=== PATIENT | female | born 1950 | race Caucasian/White ===

== ENCOUNTER → 2018-02-19 14:59 | Outpatient (CLI) | payer MEDICARE, OTHER, SELFPAY ==
--- NOTE | 2018-02-19 15:04 | MR_ITS ---
MR knee RT wo con HISTORY: Right knee pain with recent injury with pain medially with limited range of motion ITS.REASON: PAIN IN RIGHT KNEE ORDERING PHYSICIAN: Rossy Son PATIENT AGE: 67 years Comparison: None TECHNIQUE: Standard multiplanar multiecho sequences are performed without contrast. FINDINGS: The cruciate ligaments are intact. The collateral ligaments, patellar tendon, and quadriceps tendon are intact. No definite meniscal tear. There is increased signal intensity involving the posterior horn of the medial meniscus. This however does not extend to an articular surface and does not meet strict MRI criteria for a meniscal tear. There is thinning of the patellar cartilage with mild lateral subluxation of the patella. Small knee joint effusion is present mainly in the retropatellar region. Subcutaneous edema is present about the knee. There is a nondisplaced fracture involving the proximal tibia. The fracture has an inverted Y shape with longitudinal component extending into the proximal tibia at the interspinous region with one Pyle of the fracture extending medially and one Pyle extending laterally. There is a moderate amount of the proximal tibia. IMPRESSION: 1. Comminuted nondisplaced fracture of the proximal tibia with intra-articular component extending into the interspinous region with a moderate amount of edema. 2. No evidence of internal derangement. No meniscal or ligamentous tear evident. 3. Knee joint effusion
== END ==
PROVIDERS: PCP Nurse Practitioner Family; Visit Provider Nurse Practitioner Family
DX: M25.561 Pain in right knee (principal)
CPT/HCPCS: 73721

== ENCOUNTER 2018-07-06 13:00 | Outpatient (RCR) | payer MEDICARE, OTHER, SELFPAY | END 2018-07-06 14:30 | disposition home or self-care (01) | LOC: PT 13:00 | PROVIDERS: Visit Provider Orthopaedic Surgery Adult Reconstructive Orthopaedic Surgery | DX: S82.144A Nondisplaced bicondylar fracture of right tibia, initial encounter for closed fracture (principal) | CPT/HCPCS: 97014; 97110; 97112; 97163; 97164; G0283 ==

== ENCOUNTER → 2018-09-03 10:06 | Outpatient (CLI) | payer OTHER, SELFPAY ==
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
== END ==
PROVIDERS: PCP Nurse Practitioner Family; Visit Provider Nurse Practitioner Family
DX: M54.2 Cervicalgia (principal); M54.5 Low back pain
CPT/HCPCS: 72040; 72100

== ENCOUNTER 2022-12-29 16:09 | Inpatient (IN) | payer MEDICARE, OTHER, SELFPAY ==
[2022-12-29] VITALS (7 sets, daily range): BP systolic 107–126; BP diastolic 63–75; PULSE 114–124; RESP 18–22; TEMP 36.7–37.1; O2SAT 90–94
--- NOTE | 2022-12-29 16:34 | XR_ITS ---
PROCEDURE INFORMATION: Exam: XR Chest Exam date and time: 12/29/2022 4:36 PM Age: 72 years old Clinical indication: Dyspnea TECHNIQUE: Imaging protocol: Radiologic exam of the chest. Views: 1 view. COMPARISON: CR CXR CHEST(2 VIEWS-NOT PORTABLE) 08/18/2016 5:07 PM FINDINGS: Limitations: Study is technically limited due to patient positioning, rotation and poor inspiratory effort. Lungs: Lung volumes are decreased. There is mild relative elevation of the hemidiaphragm, unchanged. There is hazy ground-glass opacification with accentuated bronchovascular markings throughout the left mid-lower lung zone difficult to evaluate due to overlying breast attenuation artifact and patient rotation. Findings may be secondary to layering of a pleural effusion or underlying pulmonary vascular congestion and could be further assessed on CT exam.. There is an indistinct opacifications projecting over the right hilum also difficult to assess due to patient rotation and could be better evaluated on CT. Pleural spaces: See Lungs finding. Heart/Mediastinum: Unremarkable. No cardiomegaly. Bones/joints: Unremarkable for age. IMPRESSION: Limited assessment of the left lung and right hilum as discussed above.
--- NOTE | 2022-12-29 16:37 | CT_ITS ---
PROCEDURE INFORMATION: Exam: CT Abdomen And Pelvis With Contrast Exam date and time: 12/29/2022 5:13 PM Age: 72 years old Clinical indication: Abdominal pain; Generalized; Additional info: Fever diffuse abd pain TECHNIQUE: Imaging protocol: Computed tomography of the abdomen and pelvis with contrast. Radiation optimization: All CT scans at this facility use at least one of these dose optimization techniques: automated exposure control; mA and/or kV adjustment per patient size (includes targeted exams where dose is matched to clinical indication); or iterative reconstruction. Contrast material: ISOVUE; Contrast volume: 75 ml; Contrast route: IV; REPORTING DATA: Count of CT and Cardiac NM exams in prior 12 months: This patient has received 0 known CTs and 0 known cardiac nuclear medicine studies in the 12 months prior to the current study. COMPARISON: CR XR CHEST PORTABLE 12/29/2022 4:36 PM FINDINGS: Lungs: There is scattered bronchiectasis and coarsened peribronchial interstitial opacities lower lung zones more pronounced on the left likely secondary to chronic airway changes and linear atelectasis. Pleural spaces: There is a moderate size left pleural effusion partially visualized. Liver: Liver has a shrunken cirrhotic contour. 5.7 x 4.1 cm circumscribed hypodense liver mass inferior-posterior aspect right lobe, indeterminate. Large amount of ascites throughout the abdomen and pelvis may in part be secondary to patient's liver disease. Gallbladder and bile ducts: Gallbladder has been removed. Bile ducts are not appreciably dilated. Pancreas: Unremarkable. Main pancreatic duct is not significantly dilated. Spleen: There are scattered calcified granulomas within the spleen, longstanding, otherwise spleen is unremarkable. Adrenal glands: Normal. No mass. Kidneys and ureters: Kidneys are unremarkable. No calculi or hydronephrosis detected. Stomach and bowel: There are multiple diverticuli throughout the distal portion of the large bowel without evidence of diverticulitis. Appendix: Appendix cannot be identified with confidence the. No findings suggestive of acute appendicitis. Intraperitoneal space: Accentuated portosystemic collaterals in the upper abdomen consistent with portal hypertension. Vasculature: Unremarkable. No abdominal aortic aneurysm. Lymph nodes: Unremarkable. No enlarged lymph nodes. Urinary bladder: Urinary bladder is unremarkable. Reproductive: Uterus is unremarkable. No adnexal masses are enlargement detected. Bones/joints: No acute bony abnormalities detected. Soft tissues: Extensive anasarca in the soft tissues likely due to 3rd spacing. IMPRESSION: 1. Cirrhosis with evidence of portal hypertension. 2. Large amount of ascites, left pleural effusion and extensive anasarca in the soft tissues that may be due to combination of patient's liver disease and other causes of 3rd spacing. 3. 5.7 cm circumscribed liver mass right lobe, indeterminate for which continued follow-up advised. 4. Colonic diverticulosis. No evidence of acute diverticulitis. 5. Additional nonemergent findings as above.
[2022-12-29 16:51] LABS: Basophils # 0.1 K/mm3 (0-0.2); Basophils % 0.5 % (0.1-2.0); Eosinophils # 0.5 K/mm3 (0.0-0.4); Eosinophils % 4.5 % (0.1-12.0); Hematocrit 46.3 % (37.0-47.0); Hemoglobin 13.9 g/dL (12.2-16.2); Lymphocytes # 2.1 K/mm3 (0.7-4.5); Lymphocytes % 20.7 % (10-50); Mean Corpuscular Hemoglobin 30.7 pg (27.0-31.2); Mean Corpuscular Volume 102.1 fl (81-99); Mean Platelet Volume 8.2 fl (7.4-10.4); Monocytes # 1.3 K/mm3 (0.1-1.0); Neutrophils # 6.1 K/mm3 (1.8-7.8); Neutrophils % 61.3 % (37.0-80.0); Platelet Count 214 K/mm3 (142-424); Red Blood Count 4.54 M/mm3 (4.20-5.40); Red Cell Distribution Width 16.5 % (11.5-17.5); White Blood Count 9.9 K/mm3 (4.8-10.8)
--- NOTE | 2022-12-29 16:55 | PC.NURSE ---
MD to bedside to perform diagnostic paracentesis.
[2022-12-29 16:56] LABS: Alanine Aminotransferase 21 U/L (12-78); Albumin Level 2.5 g/dl (3.5-5.0); Albumin/Globulin Ratio 0.7 (1.1-1.8); Alkaline Phosphatase 207 U/L (38-126); Anion Gap 7.6 mEq/L (5-15); Aspartate Amino Transferase 63 U/L (14-36); Bilirubin,Total 1.7 mg/dl (0.2-1.3); Blood Urea Nitrogen 36 mg/dl (7-17); Calcium 7.5 mg/dl (8.4-10.2); Carbon Dioxide 28 mmol/L (22.0-30.0); Chloride 106 mmol/L (98-107); Creatinine Clearance Estimated 2 mL/min (50-200); Estimated Glomerular Filt Rate 55 ml/min (>60); GFR (African American) 66 ML/MIN (>60); Globulin 3.7 g/dL (1.3-3.2); Glucose 181 mg/dl (74-100); Lipase 106 U/L (23-300); Potassium 4.6 mmoL/L (3.5-5.1); Sodium 137 mmol/L (136-145); Total Protein,Serum 6.2 g/dl (6.3-8.2)
--- NOTE | 2022-12-29 16:56 | HMH.EDGENADL ---
Discharge Plan Disposition Patient Disposition: Admitted Clinical Impressions Clinical Impression: SBP (spontaneous bacterial peritonitis), Decompensation of cirrhosis of liver, Tachycardia, Edema of both lower legs, Liver mass Discharge ED Provider: Antonette Ramirez General Adult HPI General Chief complaint: Abdominal Pain Stated complaint: abdominal pain Time Seen by Provider: 12/29/22 16:21 Mode of Arrival: EMS Source of Information: Patient and EMS Limitations: No Limitations Description of Symptoms (Recalled from ER Triage Doc. by RN): pt presents to ED c/o abdominal pain and weeping from her abdomen and lower extremities. pt resides at [facility]. per report pt was recently admitted to [facility] for cellulitis and cirrhosis. History of Present Illness HPI narrative: Patient is a 72-year-old female here with fever abdominal pain and lethargy. She states that she has a history of nonalcoholic fatty liver disease and decompensated cirrhosis. She has been having diagnostic and therapeutic paracenteses for the last 6 months. She states her mental status is at her baseline she denies melena. She denies any respiratory or urinary symptoms. She denies rashes. She states she has been in and out of for similar treatments in the past she also has left lower extremity weakness which has been chronic and an ulcer on the dorsal aspect of her left lower extremity that she has been having treated with Unna boots. She states she is bedbound and has been able to walk for the last 6 months. She is not on hospice and no one has discussed this with her. She states that she wants to be full code. Related Data Home Medications Medication Instructions Recorded Confirmed alendronate 70 mg tablet 70 mg PO WEEKLY bones 12/29/22 12/29/22 cholecalciferol (vitamin D3) 25 25 mcg PO DAILY Supplement 12/29/22 12/29/22 mcg (1,000 unit) capsule empagliflozin 10 mg tablet 10 mg PO DAILY dm 12/29/22 12/29/22 (Jardiance) famotidine 20 mg tablet 20 mg PO DAILY gerd 12/29/22 12/29/22 furosemide 20 mg tablet 20 mg PO DAILY Fluid 12/29/22 12/29/22 lactulose 10 gram/15 mL oral 10 g PO BID PRN Constipation 12/29/22 12/29/22 solution pantoprazole 40 mg tablet,delayed 40 mg PO DAILY gerd 12/29/22 12/29/22 release pravastatin 40 mg tablet 40 mg PO HS Cholesterol 12/29/22 12/29/22 rifaximin 550 mg tablet 550 mg PO BID liver 12/29/22 12/29/22 zinc sulfate 220 mg capsule 220 mg PO ONCE Supplement 12/29/22 12/29/22 Allergies Allergy/AdvReac Type Severity Reaction Status Date / Time No Known Allergies Allergy Unverified 05/20/17 14:16 [facility] Disclaimer: The information contained in this section may have been updated after the patient was seen, as this information can be updated by other users. Medical History (Updated 12/29/22 @ 22:20 by Antonette Ramirez MD) Abdominal ascites Acute respiratory failure RAFAEL (acute kidney injury) Cirrhosis of liver Diabetes type 2, controlled Esophageal varices GERD (gastroesophageal reflux disease) Hyperlipemia Hypertension Insomnia BOUDREAUX (nonalcoholic steatohepatitis) Neoplasm of liver Osteoarthritis Portal vein thrombosis Social History (Updated 12/29/22 @ 16:25 by Karma Ruiz RN) Smoking Status: Never smoker alcohol intake: never current occupational status: other Travel in the last 8 weeks: None ROS Obtained: Yes All systems reviewed & no additional complaints except as documented Physical Exam General General appearance: alert Respiratory Respiratory exam: Present normal lung sounds bilaterally and other (Oxygen saturations 93% on room air); Absent respiratory distress Cardiovascular Cardiovascular exam: Present tachycardia Abdominal Exam Abdominal exam: Present distention and tenderness (Diffusely tender throughout no rebound or guarding) Neurological Exam Neurological exam: Present alert and oriented X3 Skin Skin exam: Present other (Diffuse vasquez
[2022-12-29 16:59] LABS: Activated Partial Thrombo Time 29.3 seconds (22.8-30.6); INR 1.26 (0.9-1.1); Prothrombin Time 13.4 seconds (10.1-12.5)
--- NOTE | 2022-12-29 17:00 | PC.NURSE ---
specimens walked to lab.
--- NOTE | 2022-12-29 17:05 | PC.NURSE ---
Addendum entered by Kerri Simmons RN 12/29/22 17:49: spoke with Lisa in lab states she did find the order for triglycerides and was going to place order for that, updated JOSE RAFAEL ZAPATA Original Note: contacted lab per JOSE RAFAEL Ramirez requesting a triglyceride level on ascities fluid drawn from pt. Spoke with Lily, states she thinks that it is a send out lab, states she will check and call us back. Reported to Lisa we could not find the order in the computer, states she will check on that also.
[2022-12-29 17:07] LABS: Appearance,Body Fld. Cloudy; Source, Body Fld. Peritoneal Fluid; Volume,Body Fld. 40 mL
--- NOTE | 2022-12-29 17:15 | PC.NURSE ---
pt to radiology
[2022-12-29 17:19] LABS: RBC,Body Fluid < 10 cells/uL (< 10 X 10^3); TNC,Body Fluid 86 cells/uL (< 1000)
--- NOTE | 2022-12-29 17:20 | PC.NURSE ---
pt returned from radiology.
--- NOTE | 2022-12-29 17:48 | PC.NURSE ---
ER MD Ramirez speaking with Dr Osman, hospitalist
[2022-12-29 18:01] LABS: Mononuclear WBCs,Body Fluid 44 %; Polynuclear WBC,Body Fluid 16 %
--- NOTE | 2022-12-29 18:03 | PC.NURSE ---
contacted cook house supervisor for admission, states she is waiting on a call back from Dr. Osman he is consulting with Dr. Pelaez who possibly see pt at [facility].
[2022-12-29 18:32] LABS: Hemoglobin A1C 5.4 % (4.0-6.0)
--- NOTE | 2022-12-29 18:45 | PC.NURSE ---
report called at this time.
[2022-12-29 19:46] LABS: Microscopic, Urine URINE MICROSCOPIC (MICROSCOPIC)
[2022-12-29 19:48] LABS: Appearance,Urine CLEAR (Clear); Bilirubin,Urine Negative (Negative); Blood, Urine TRACE-I (Negative); Color,Urine YELLOW (Yellow); Glucose,Urine (UA) 2+ (Negative); Ketones,Urine Negative (Negative); Leukocyte Esterase,Urine TRACE (Negative); Nitrate,Urine Negative (Negative); PH,Urine 5.5 (5.0-8.5); Protein,Urine Negative (Negative); Urobilinogen,Urine 0.2 EU/dl (0.2)
[2022-12-29 20:11] LABS: RBC,Urine Occasional #/hpf (0-3); Yeast,Urine 3+ /lpf
[2022-12-29 20:12] LABS: Bacteria,Urine Trace /lpf
[2022-12-29 20:57] LABS: POC Glucose,Bedside 132 (70-110)
[2022-12-30] VITALS (8 sets, daily range): BP systolic 117–154; BP diastolic 65–93; PULSE 106–118; RESP 17–18; TEMP 36.3–36.9; O2SAT 91–96; BMI 36.3
--- NOTE | 2022-12-30 03:20 | PC.NURSE ---
PATIENT C/O PRESSURE PAIN IN ABDOMEN 12/09. DR BIGGS NOTIFIED AND ORDERS RECEIVED FOR MORPHINE AND ZOFRAN.
--- NOTE | 2022-12-30 04:33 | PC.NURSE ---
VERY LITTLE RESULTS FROM BUMEX 1 MG IVP. 3 PLUS PITTING EDEMA BLEs. OPEN AREA ON LEFT FOOT WHERE LARGE BLISTER RUPTURED. ABDOMEN FIRM, DISTENDED (ASCITES), ACTIVE BOWEL SOUNDS. AT 0338 RECEIVED IVP MORPHINE 2 MG FOR ABD DISCOMFORT/PRESSURE 6-12/09.
[2022-12-30 05:37] LABS: POC Glucose,Bedside 112 (70-110)
[2022-12-30 06:47] LABS: Basophils % 0.4 % (0.1-2.0); Eosinophils # 0.4 K/mm3 (0.0-0.4); Eosinophils % 4.4 % (0.1-12.0); Hematocrit 44.8 % (37.0-47.0); Hemoglobin 13.7 g/dL (12.2-16.2); Lymphocytes % 20.2 % (10-50); Mean Corpuscular HGB Conc 30.5 g/dL (31.8-35.4); Mean Corpuscular Volume 101.9 fl (81-99); Mean Platelet Volume 8.1 fl (7.4-10.4); Monocytes # 1.2 K/mm3 (0.1-1.0); Monocytes % 12.6 % (1.7-9.3); Neutrophils # 6.1 K/mm3 (1.8-7.8); Neutrophils % 62.3 % (37.0-80.0); Platelet Count 191 K/mm3 (142-424); Red Cell Distribution Width 16.3 % (11.5-17.5); White Blood Count 9.8 K/mm3 (4.8-10.8)
[2022-12-30 06:54] LABS: Alanine Aminotransferase 19 U/L (12-78); Albumin Level 2.3 g/dl (3.5-5.0); Albumin/Globulin Ratio 0.7 (1.1-1.8); Alkaline Phosphatase 196 U/L (38-126); Anion Gap 8.3 mEq/L (5-15); Aspartate Amino Transferase 52 U/L (14-36); Bilirubin,Total 1.5 mg/dl (0.2-1.3); Blood Urea Nitrogen 37 mg/dl (7-17); Calcium 7.5 mg/dl (8.4-10.2); Carbon Dioxide 27 mmol/L (22.0-30.0); Chloride 106 mmol/L (98-107); Chol/HDL Ratio 8.8 (1-3.5); Cholesterol 150 mg/dl (140-200); Creatinine Clearance Estimated 65 mL/min (50-200); Estimated Glomerular Filt Rate 49 ml/min (>60); GFR (African American) 59 ML/MIN (>60); Globulin 3.5 g/dL (1.3-3.2); Glucose 122 mg/dl (74-100); HDL Cholesterol 17 mg/dl (40-60); Magnesium 1.9 mg/dl (1.6-2.3); Potassium 4.3 mmoL/L (3.5-5.1); Sodium 137 mmol/L (136-145); Total Protein,Serum 5.8 g/dl (6.3-8.2); Triglycerides 93 mg/dl (30-150); VLDL Cholesterol 19 mg/dL (0-40)
[2022-12-30 07:04] LABS: Direct LDL Cholesterol 100.74 mg/dL (100-129)
--- NOTE | 2022-12-30 07:43 | EXP.HP ---
History of Present Illness *Admission Date: 12/29/22 *Reason for visit:: Abdominal pain and swelling *History of present illness: Very unfortunate 72-year-old female with history of liver mass, decompensated liver cirrhosis and history of spontaneous bacterial peritonitis with end-stage liver disease. She has been seen at [facility] multiple times, biopsies of her liver mass have not been done but the consideration has been that she has primary hepatocellular carcinoma. She been transferred to several times for diuresis, treatment of decompensated cirrhosis and has been living at the [facility] because of her pedal edema, overall functional decline status and need for nursing care. Over the past weeks we have discussed with her several times end-of-life issues, she is up to this point declined hospice care and has decided to maintain a full CODE STATUS. However, she became ill yesterday and requested that she not be transferred to because she was very tired of long-term stays and work-ups and hospitals. As result after evaluating in the ER and drawing off some chylous ascitic fluid she was admitted here for further discussions of management going forward. [facility] Disclaimer: The information contained in this section may have been updated after the patient was seen, as this information can be updated by other users. Medical History (Updated 12/29/22 @ 22:20 by Antonette Ramirez MD) Abdominal ascites Acute respiratory failure RAFAEL (acute kidney injury) Cirrhosis of liver Diabetes type 2, controlled Esophageal varices GERD (gastroesophageal reflux disease) Hyperlipemia Hypertension Insomnia BODUREAUX (nonalcoholic steatohepatitis) Neoplasm of liver Osteoarthritis Portal vein thrombosis Social History (Updated 12/29/22 @ 22:20 by Antonette Ramirez MD) Smoking Status: Never smoker alcohol intake: never current occupational status: other Travel in the last 8 weeks: None Meds Home Medications and Allergies Home Medications Medication Instructions Recorded Confirmed Type alendronate 70 mg tablet 70 mg PO WEEKLY bones 12/29/22 12/29/22 History cholecalciferol (vitamin D3) 25 25 mcg PO DAILY Supplement 12/29/22 12/29/22 History mcg (1,000 unit) capsule empagliflozin 10 mg tablet 10 mg PO DAILY dm 12/29/22 12/29/22 History (Jardiance) famotidine 20 mg tablet 20 mg PO DAILY gerd 12/29/22 12/29/22 History furosemide 20 mg tablet 20 mg PO DAILY Fluid 12/29/22 12/29/22 History lactulose 10 gram/15 mL oral 10 g PO BID PRN Constipation 12/29/22 12/29/22 History solution pantoprazole 40 mg tablet,delayed 40 mg PO DAILY gerd 12/29/22 12/29/22 History release pravastatin 40 mg tablet 40 mg PO HS Cholesterol 12/29/22 12/29/22 History rifaximin 550 mg tablet 550 mg PO BID liver 12/29/22 12/29/22 History zinc sulfate 220 mg capsule 220 mg PO ONCE Supplement 12/29/22 12/29/22 History New Prescriptions to Start Prescriptions: Allergies Allergy/AdvReac Type Severity Reaction Status Date / Time No Known Allergies Allergy Unverified 05/20/17 14:16 Exam Data for Last 24 hours Vital signs and Labs for Last 24 Hours: Temp Pulse Resp BP Pulse Ox O2 Del Method 97.7 F 117 H 18 127/67 93 L Room Air 12/30/22 04:00 12/30/22 04:00 12/30/22 04:00 12/30/22 04:00 12/30/22 04:00 12/30/22 06:33 Laboratory Results - last 24 hr 12/29/22 16:19: WBC 9.9, RBC 4.54, Hgb 13.9, Hct 46.3, MCV 102.1 H, MCH 30.7, MCHC 30.0 L, RDW 16.5, Plt Count 214, MPV 8.2, Neut % (Auto) 61.3, Lymph % (Auto) 20.7, [place] % (Auto) 13.0 H, Eos % (Auto) 4.5, Baso % (Auto) 0.5, Neut # (Auto) 6.1, Lymph # (Auto) 2.1, [place] # (Auto) 1.3 H, Eos # (Auto) 0.5 H, Baso # (Auto) 0.1, PT 13.4 H, INR 1.26 H, APTT 29.3, Sodium 137, Potassium 4.6, Chloride 106, Carbon Dioxide 28, Anion Gap 7.6, BUN 36 H, Creatinine 1.00, Estimated Creat Clear 2, Estimated GFR 55 L, Est GFR ( Amer) 66, Glucose 181 H, Hemog
--- NOTE | 2022-12-30 10:39 | CARE MANAGER ---
During rounds this am, talked to patient regarding Hospice services at [facility]. Patient was ok with services thus referral was made. Called [facility] and spoke with Scarlet Altman, patient records and demographics faxed. They will come to [facility] to eval this patient.
[2022-12-30 11:01] LABS: POC Glucose,Bedside 145 (70-110)
--- NOTE | 2022-12-30 11:31 | P.CONPHA_ITS ---
Pharmacy Intervention Comments: Patient's home medications were verified by using a med list from long-term. -King Cerda, PharmD student
--- NOTE | 2022-12-30 11:31 | HMH.PHAINT1 ---
Pharmacy Intervention Comments: Patient's home medications were verified by using a med list from [facility]. -King Cerda, PharmD student
--- NOTE | 2022-12-30 12:11 | PC.NURSE ---
courtesy tech note: pt is lying in bed with call light within reach.
--- NOTE | 2022-12-30 14:37 | DIET.NUTRFU ---
RD consulted d/t Anjum score of 12. Pt presents with liver failure, 3+ pitting edema in BLE, ascites, and open wound on dorsal aspect of L foot. Pt meets criteria for severe PCM d/t poor intakes meeting <50% of estimated needs for >5 days, presence of 3+ pitting edema in BLE and ascites, and muscle/fat wasting at temples. Pt reports nausea with attempting to eat. UBW of 166#, CBW 197# d/t fluid retention. DM controlled AEB A1C of 5.4. Pt reports LBM yesterday morning. Pt currently on clear liquids diet. Will provide Boost Breeze nutritional supplement with all trays to aid in meeting energy and protein needs. Will monitor changes to diet order and add supplements according to preferences. Pt plans to return to [facility], considering hospice care.
[2022-12-30 16:21] LABS: POC Glucose,Bedside 150 (70-110)
--- NOTE | 2022-12-30 18:07 | PC.WOUNDNOTE ---
left lower leg
--- NOTE | 2022-12-30 18:08 | PC.WOUNDNOTE ---
left buttock stage 2
[2022-12-31 03:49] VITALS: BP 114/66; PULSE 111; RESP 17; TEMP 36.9; O2SAT 92; BMI 37.3
[2022-12-31 06:15] LABS: POC Glucose,Bedside 108 (70-110)
[2022-12-31 07:23] VITALS: BP 137/79; PULSE 125; RESP 19; TEMP 37; O2SAT 93
--- NOTE | 2022-12-31 07:34 | EXP.ACUTE.PN ---
Subjective *Date: 12/31/22 *Time: 07:34 Interval history: Patient had a comfortable night overnight, has been eating and drinking okay, continues to be dyspneic but not oxygen requirement, and continues to have some swelling and pain. [facility] came by yesterday and talked with patient. She is willing to accept their services and after consideration has changed her CODE STATUS to DNR. She is talked with her family who is agreeable with her decision. Medical Exam Vital signs and Labs for Last 24 Hours: Vital Signs Temp Pulse Resp BP Pulse Ox O2 Del Method 12/31/22 07:23 98.6 F 125 H 19 137/79 93 L Room Air 12/31/22 03:49 98.4 F 111 H 17 114/66 92 L 12/31/22 03:00 Room Air 12/31/22 01:00 Room Air 12/30/22 23:00 Room Air 12/30/22 21:00 Room Air 12/30/22 20:00 Room Air 12/30/22 23:40 98.4 F 106 H 17 137/92 H 93 L Room Air 12/30/22 20:00 98 F 114 H 17 134/65 93 L Room Air 12/30/22 19:00 Room Air 12/30/22 17:00 118 H 95 Room Air 12/30/22 17:00 Room Air 12/30/22 15:00 Room Air 12/30/22 15:27 97.8 F 118 H 17 117/85 95 Room Air 12/30/22 13:00 Room Air 12/30/22 10:59 98.1 F 117 H 18 154/93 H 96 Room Air 12/30/22 08:50 118 H 91 L Room Air 12/30/22 10:03 Room Air 12/30/22 07:52 97.4 F L 118 H 18 139/72 91 L Room Air Intake and Output 12/30/22 12/31/22 12/31/22 19:59 03:59 11:59 Intake Total 480 / 720 240 / 720 Output Total 175 / 475 300 / 475 0 / 475 Balance 305 / 245 -300 / 245 240 / 245 Intake: Intake, Oral Amount 480 / 720 240 / 720 Output: Output, Urine Amount 175 / 475 300 / 475 0 / 475 Other: Number of Unmeasured Voids 0 0 0 Weight 197 lb 7.982 oz 202 lb 9.6 oz Patient Weight 12/31/22 11:59 Weight 202 lb 9.6 oz Laboratory Results - last 24 hr 12/30/22 10:54: POC Glucose 145 H 12/30/22 16:06: POC Glucose 150 H 12/31/22 06:05: POC Glucose 108 I & O for Labs for Last 24 Hours: Intake & Output 12/28/22 12/29/22 12/30/22 12/31/22 11:59 11:59 11:59 11:59 Intake Total 600 / 600 720 / 720 Output Total 550 / 550 475 / 475 Balance 50 / 50 245 / 245 Weight 197 lb 8 oz 202 lb 9.6 oz Microbiology Reports for the Last 24 Hours: Microbiology 12/29/22 19:38 Urine,Clean Catch Urine Culture - Preliminary NO GROWTH AFTER 24 HOURS 12/29/22 16:52 Peritoneal Fluid Gram Stain - Final 12/29/22 16:52 Peritoneal Fluid Body Fluid Culture - Preliminary NO GROWTH AFTER 24 HOURS Comment:: Patient is chronically ill-appearing. No jaundice. Abdomen is swollen with ascites. Minimally tender. Lungs have poor air movement with rhonchi in the bases. Heart rate regular but tachycardic. Legs are swollen, skin breakdown as previously noted. Assessment and Plan *Assessment and plan (1) SBP (spontaneous bacterial peritonitis): Status: Acute Category: Medical Code(s): K65.2 - Spontaneous bacterial peritonitis (2) Decompensation of cirrhosis of liver: Status: Acute Category: Medical Code(s): K72.90 - Hepatic failure, unspecified without coma; K74.60 - Unspecified cirrhosis of liver (3) Tachycardia: Status: Acute Category: Medical Code(s): R00.0 - Tachycardia, unspecified (4) Edema of both lower legs: Status: Acute Category: Medical Code(s): R60.0 - Localized edema (5) Liver mass: Status: Acute Category: Medical Code(s): R16.0 - Hepatomegaly, not elsewhere classified Plan Await cultures of ascites. Continue supportive care, supportive care medications antibiotics. I discussed with patient the possibility of changing focus to a palliative care approach and she is in agreement with this and actually wishes to adopt a DNR status. We will change this paperwork. We will initiate hospice care consultation when
--- NOTE | 2022-12-31 10:34 | HMH.PTWOUND ---
Rehab Inpt Wound Evaluation Rehab IP Wound Evaluation Start: 12/30/22 10:50 Freq: ONCE Status: Active Protocol: Document 12/31/22 10:25 PHOYESI (Rec: 12/31/22 10:34 PHORNE [id number]) Rehab PT Wound Assessment Subjective Subjective 72 yowf adm to [facility] with decompendsated cirrhosis due to liver mass. She presents with multiple wounds upon admission. L lower leg and foot wounds appears to be areas that were large bullae and have now opened and are almost completely healed. Her R LE presents with multiple small vesicles and spontaneous weeping of serous drainage. B LE with 4+ pitting edema throughout. She was resideing in a SNF prior to this admission. Wound Left Dorsal Foot Wound Type Stasis Ulcer Is This a Chronic Wound Yes Wound Length (cm) 5.0 Wound Width (cm) 5.5 Wound Depth (cm) 0.1 Wound Bed Appearance Edgar Wound Margins Description Well Defined Surrounding Tissue Appearance Edgar Edema Type Pitting Edema Degree 4+ Query Text:1+ Trace, Barely Detectable, Rebound 15-30 seconds 2+ Moderate, Slight Indentation, Rebound 10-20 seconds 3+ Deep, Deeper Indentation, Rebound > 30 seconds 4+ Very Deep, Rebound > 60 seconds Drainage Amount None Dressing Status Open to Air Dressing Change Patient Tolerance Tolerated Well Plan/Recommendation Comment B LE with 3/4 TTP throughout B LE. Currently L LE wounds appears dry and epithelialized without drainage. No needs for debridement at this time. Compression not cuurently recommend due to significant amts of abdominal fluid. Compression of LEs at this time is likely to exacerbate her abdominal fluid collection and provide little to no benefit to the legs. Compression may be warranted at a later date if abdominal
--- NOTE | 2022-12-31 11:15 | CARE MANAGER ---
Patient is likely ready for discharge in the am. She has told Dr Pelaez on numerous occasions that she is not interested in gong back to [facility]. The complicating factor is her insurance ([employer]/Medicare) to which most facilities are not participating. I have reached out to [facility], [facility] and [facility] none of them are participating with her insurance. After talking with patient she did consent to sending information to [facility] ([facility]) in [place], who does participate with her insurance. I am waiting for return call from [facility]. I did reiterate to patient that she is ready for discharge in the am.
[2022-12-31 11:16] LABS: POC Glucose,Bedside 94 (70-110)
[2022-12-31 15:23] VITALS: BP 146/65; PULSE 125; RESP 18; TEMP 37.2; O2SAT 93
--- NOTE | 2022-12-31 15:23 | CARE MANAGER ---
Addendum entered by [facility] 01/06/23 11:59: Paulette w/ [facility] stated they will admit this patient once she arrives at her friends house. Paulette will also be making contact w/ Angela regarding hospital bed. Angela has agreed to transport patient home this afternoon. I have updated patient and MD regarding situation. Addendum entered by [facility] 01/06/23 08:41: I spoke w/ Brit at [facility] ([phone]) regarding patient referral: information has been faxed to [facility] at [phone]. Addendum entered by [facility] 01/06/23 08:19: Patient's plan today is to discharge home w/ her friend (Angela [phone]). I called and spoke with Angela and she does plan to care for this patient at her home in [place] ([address] [place] [address]). I will also call and set up Hospice services for patient at home. I will make contact w/ Hospice this AM to evaluate patient and arrange DME. The plan for this patient is to discharge home today. Addendum entered by [facility] 01/03/23 13:57: Family informed [facility] that they are undecided w/ there services at this time. I am currently waiting for a phone call back from MD regarding situation. Addendum entered by [facility] 01/03/23 11:23: After multiple lengthy discussions w/ patient and her daughter (Maria Luisa [phone]) this AM patient has decided to consult w/ [facility]. Radha w/ [facility] was in house this AM to speak with patient and at that time did refuse Hospice services. Patient has since changed her mind and would like to [facility]. I have attempted to contact Radha regarding situation: no answer at this time/VM left. I have updated patient and her daughter that per MD patient is ready for discharge today. Addendum entered by [facility] 01/02/23 14:16: I have attempted to contact patient's daughter regarding situation: no answer and no voicemail. I will continue to try to get in contact w/ daughter. Addendum entered by [facility] 01/02/23 13:24: Per Sue w/ [facility] patient has now been denied SNF level of care. I will update patient, MD and [facility]. [facility] will be here later today or tomorrow to evaluate this patient. Addendum entered by Ines Sheehan 01/02/23 08:52: I have updated [facility] w/ [facility] that patient will not be ready for discharge till tomorrow. Antonette Dillon has been consulted to speak with patient this AM regarding Medicaid. I have also updated Michela Hooper w/ [facility] and she will follow up with patient regarding discharge plans: returning to [facility] SNF vs returning to [id number]. Addendum entered by Inesyohan Sheehan 01/02/23 07:23: Patient has been approved for admission at [facility] SNF level of care today. Addendum entered by Ines Aurora 01/01/23 11:46: [facility] and [facility] admissions will not give me and update regarding this patient. I explained to patient that she will require a precert and will be ready for discharge tomorrow. Patient is agreeable to return to [facility] at time of discharge. [facility] w/ [facility] stated that she will start a precert today. Addendum entered by Ines Aurora 01/01/23 09:54: [facility] is still reviewing patient information at this time. did inform patient that if [facility] can not accept we would discharge back to [facility] tomorrow: patient is agreeable. Original Note: Spoke with Michela Hooper [facility]osp[facility] nurse that we are still determining where patient will discharge at this time. Chey from [facility] is doing an asset check with patient to determine Medicaid eligibility at this time. I am waiting for her to get back to me regarding this.
--- NOTE | 2022-12-31 16:35 | PC.NURSE ---
No acute changes from previous assessment. Pt with complaints of abd pain this afternoon, notified MD - see orders. Pt verbalizes lessened pain after pain medication administration. pt bilateral legs and abdomen continue to seep fluids, 3+ edema in bilateral legs. no changes to foot ulceration. Pt offers no complaints and is resting comfortably this afternoon.
[2022-12-31 17:14] LABS: POC Glucose,Bedside 148 (70-110)
--- NOTE | 2022-12-31 18:24 | PC.NURSE ---
all charting and care done under my direct supervision
[2022-12-31 20:00] VITALS: BP 109/55; PULSE 122; RESP 20; TEMP 36.9; O2SAT 96
--- NOTE | 2022-12-31 21:05 | PC.NURSE ---
pt has c/o abd pain, upon assessment abd is round, tender, and firm. pt states she also has a daily BM and hasn't today, bs present. tx per JUL.
[2022-12-31 22:05] LABS: POC Glucose,Bedside 145 (70-110)
--- NOTE | 2022-12-31 22:25 | PC.NURSE ---
pt nauseous and vomiting, zofran per JUL.
[2023-01-01] VITALS (7 sets, daily range): BP systolic 79–120; BP diastolic 48–77; PULSE 108–119; RESP 18–20; TEMP 36.6–36.8; O2SAT 90–94; BMI 38.4
[2023-01-01 06:47] LABS: POC Glucose,Bedside 132 (70-110)
--- NOTE | 2023-01-01 07:42 | EXP.ACUTE.PN ---
Subjective *Date: 01/01/23 *Time: 07:42 Interval history: Patient is really about the same. She continues to struggle with a lot of pain related to her cancer, morphine injections have helped but make her very nauseated. She reports that she is taken fentanyl before with no problems. Social work is continuing to try to find a place for her to go initially with possible therapy and then transition to hospice care. Medical Exam Vital signs and Labs for Last 24 Hours: Vital Signs Temp Pulse Resp BP Pulse Ox O2 Del Method 01/01/23 07:33 98.2 F 119 H 18 107/77 L 90 L Room Air 01/01/23 04:00 98.0 F 110 H 18 79/53 L 91 L Room Air 01/01/23 01:00 Room Air 01/01/23 00:00 98.1 F 108 H 20 96/48 L 94 L Room Air 01/01/23 06:11 Room Air 01/01/23 04:38 Room Air 01/01/23 02:37 Room Air 12/31/22 22:59 Room Air 12/31/22 21:00 Room Air 12/31/22 20:00 Room Air 12/31/22 20:00 98.4 F 122 H 20 109/55 L 96 Room Air 12/31/22 17:00 Room Air 12/31/22 15:00 Room Air 12/31/22 15:23 98.9 F 125 H 18 146/65 H 93 L Room Air 12/31/22 13:00 Room Air 12/31/22 11:00 Room Air 12/31/22 08:40 Room Air 12/31/22 09:00 Room Air Intake and Output 12/31/22 01/01/23 01/01/23 19:59 03:59 11:59 Intake Total 700 / 1240 120 / 1240 420 / 1240 Output Total 150 / 600 0 / 600 450 / 600 Balance 550 / 640 120 / 640 -30 / 640 Intake: Intake, Oral Amount 600 / 1140 120 / 1140 420 / 1140 Intake, Total IV Amount 100 / 100 Ceftriaxone Sodium 2 gm In 0.9 100 / 100 % Sodium Chloride 100 ml @ 200 mls/hr IV Q24H [facility] Rx#:[id number] Output: Output, Urine Amount 150 / 600 0 / 600 450 / 600 Other: Number of Unmeasured Voids 0 1 0 Weight 208 lb 12.8 oz Patient Weight 01/01/23 11:59 Weight 208 lb 12.8 oz Laboratory Results - last 24 hr 12/29/22 16:52: Miscellaneous Test Comment 12/29/22 19:38: Urine Color Yellow, Urine Appearance Clear, Urine pH 5.5, Ur Specific Gerlach 1.010, Urine Protein Negative, Urine Glucose (UA) 2+, Urine Ketones Negative, Urine Blood Trace-i, Urine Nitrate Negative, Urine Bilirubin Negative, Urine Urobilinogen 0.2, Ur Leukocyte Esterase Trace, Urine RBC Occasional, Urine WBC 10-20, Ur Squamous Epith Cells 10-20, Urine Bacteria Trace, Urine Yeast 3+ 12/31/22 11:06: POC Glucose 94 12/31/22 16:52: POC Glucose 148 H 12/31/22 21:12: POC Glucose 145 H 01/01/23 05:35: POC Glucose 132 H I & O for Labs for Last 24 Hours: Intake & Output 12/29/22 12/30/22 12/31/22 01/01/23 11:59 11:59 11:59 11:59 Intake Total 600 / 600 720 / 720 1240 / 1240 Output Total 550 / 550 475 / 475 600 / 600 Balance 50 / 50 245 / 245 640 / 640 Weight 197 lb 8 oz 202 lb 9.6 oz 208 lb 12.8 oz Microbiology Reports for the Last 24 Hours: Microbiology 12/29/22 19:38 Urine,Clean Catch Urine Culture - Final Citrobacter farmeri 12/29/22 16:52 Peritoneal Fluid Gram Stain - Final 12/29/22 16:52 Peritoneal Fluid Body Fluid Culture - Preliminary NO GROWTH AFTER 48 HOURS 12/29/22 16:27 Blood Blood Culture - Preliminary NO GROWTH AFTER 48 HOURS 12/29/22 16:35 Blood Blood Culture - Preliminary NO GROWTH AFTER 48 HOURS Comment:: Patient is chronically ill-appearing. No jaundice. Abdomen is swollen with ascites. Minimally tender. Lungs have poor air movement with rhonchi in the bases. Heart rate regular but tachycardic. Legs are swollen, skin breakdown as previously noted. Assessment and Plan *Assessment and plan (1) SBP (spontaneous bacterial peritonitis): Status: Acute Category: Medical Code(s): K65.2 - Spontaneous bacterial peritonitis (2) Decompensation of cirrhosis of liver: Status: Acute Category: Medical Code(s): K72.90 - Hepatic failure, unspecified w
--- NOTE | 2023-01-01 08:02 | PC.NURSE ---
0757 - Dr Pelaez made aware of rash on right hip and concern for shingles. Received order for pt to be started on valacyclovir 500 mg PO TID. RB+V.
--- NOTE | 2023-01-01 10:17 | HMH.PTEV ---
Physical Therapy Evaluation Rehab PT IP Evaluation Start: 01/01/23 09:10 Freq: ONCE Status: Active Protocol: Document 01/01/23 10:12 PHOYESI (Rec: 01/01/23 10:17 PHORNE [id number]) Subjective/History History History 72 yowf adm to [facility] with decompensated Cirrhosis with liver mass. She reports she was residing in a [facility] prior to adm, but had been living alone prior to that and was independent with all mobility as recently as 3 mos ago. She reports she was ambulating at the [facility] with RW, but it was extremely painful for me. Subjective Subjective Pt reports severe pain in the L LE, and extreme tenderness to palpation in the L foot. Copious amts of clear fluid weeping from her skin from chest distally. Also currently in containment with airborne precautions due to possible shingles. Rehab PT IP Eval Objective Appearance Patient Behavior Appropriate Patient Orientation Person,Place,Time Difficulty following instructions none Speech Pattern Clear Ambulation Patient Able to Ambulate No Balance Ability to Arise Able, uses arms to help Sitting Balance Leans or slides in chair Standing Balance Unsteady Dynamic Sitting Balance Ability Fair Dynamic Standing Balance Ability Poor Transfers Bed Transfer Ability Moderate x 1 (50% assist) Sit to Stand Bed Transfer Ability Maximum x 1 (75% assist) Rehab PT IP prob,goals,plan Problems Date of Evaluation: 01/01/23 PT IP Problems Bed Mobility,Transfers,Gait Rehab Potential Rehab Potential Fair Plan PT Intervention Plan Bed Mobility,Transfers,Gait, Therapeutic Exercise PT Plan Frequency Daily Duration LOS Discharge Goals Bed Transfer Ability Minimal x 2 (25% assist) Sit to Stand Chair Transfer Ability Moderate x 2 (50% assist) Discharge Plan PT Discharge Plan Pt is currently most appropriate for rehab placement once medically stable for d/c. G -code Required No Eval Complexity Eval Charge Codes
--- NOTE | 2023-01-01 10:39 | HMH.OTEV ---
OT Inpatient Evaluation Rehab OT IP Evaluation Start: 01/01/23 09:10 Freq: ONCE Status: Active Protocol: Document 01/01/23 09:58 CYNTHIACOVINA (Rec: 01/01/23 10:[address] [facility] [id number]) Rehab OT IP Assessment Subjective History Pt oriented x 3 on arrival. Pt agreeable to engage in therapy evaluation. Pt is a 72-year-old female with history of liver mass, decompensated liver cirrhosis and history of spontaneous bacterial peritonitis with end -stage liver disease. Pt admitted on 12/29/22 due to decompensated liver cirrhosis. Prior to being in the hospital pt had recently been at [facility]. Pt reports she was able to dress and feed herself, but required assistance with bathing. She was using a rolling walker during functional mobility tasks. Pt has a past medical history of: Abdominal ascites Acute respiratory failure RAFAEL (acute kidney injury) Cirrhosis of liver Diabetes type 2, controlled Esophageal varices GERD (gastroesophageal reflux disease) Hyperlipemia Hypertension Insomnia BOUDREAUX (nonalcoholic steatohepatitis) Neoplasm of liver Osteoarthritis Portal vein thrombosis Subjective I just can't believe all this has happened. Objective Patient Orientation Person,Place,Birthday Upper Extremity Gross ROM WFL Bed Mobility bed mobility-scooting,bed mobility - supine/sit,bed mobility - rolling Assist Level Moderate x 2 (50% assist) Transfer Training Sit/Stand Transfer Assist Level Maximum x 1 (75% assist) Rehab OT IP prob,goals,plan Problems Date of Evaluation:
[2023-01-01 11:18] LABS: POC Glucose,Bedside 124 (70-110)
--- NOTE | 2023-01-01 14:31 | DIET.NUTRFU ---
Followed up with patient this morning on tolerance of clear liquid diet. Pt has had low intakes, intermittent N/V, and abdominal pain. Pt states that her current GI sxs have been normal for her. Pt states that she does not like the Boost Breeze and prefers regular Boost (chocolate flavor). Notified nursing staff of pt's wishes for full liquids. Pt's diet order advanced to full liquids. Pt awaiting placement in a facility at this time.
[2023-01-01 17:18] LABS: POC Glucose,Bedside 131 (70-110)
[2023-01-01 21:49] LABS: POC Glucose,Bedside 162 (70-110)
[2023-01-02 04:00] VITALS: BP 106/84; PULSE 118; RESP 19; TEMP 36.6; O2SAT 93; BMI 36.1
[2023-01-02 06:38] LABS: POC Glucose,Bedside 123 (70-110)
--- NOTE | 2023-01-02 07:49 | EXP.ACUTE.PN ---
Subjective *Date: 01/02/23 *Time: 07:49 Interval history: Patient has a little bit of pain today, she thinks that she is swollen and is due for a large-volume paracentesis. Is scheduled to go back to her group home today. Still deciding whether or not she will use hospice benefit return to skilled care. Medical Exam Vital signs and Labs for Last 24 Hours: Vital Signs Temp Pulse Resp BP Pulse Ox O2 Del Method 01/02/23 06:19 Room Air 01/02/23 04:00 97.8 F 118 H 19 106/84 L 93 L Room Air 01/02/23 04:52 Room Air 01/02/23 02:51 Room Air 01/02/23 01:00 Room Air 01/01/23 21:00 Room Air 01/01/23 20:00 Room Air 01/01/23 22:49 Room Air 01/01/23 21:00 97.9 F 115 H 19 120/60 93 L Room Air 01/01/23 17:00 Room Air 01/01/23 15:13 98.1 F 111 H 18 110/60 93 L Room Air 01/01/23 15:00 Room Air 01/01/23 13:00 Room Air 01/01/23 11:00 Room Air 01/01/23 08:36 Room Air 01/01/23 08:09 19 Intake and Output 01/01/23 01/02/23 01/02/23 19:59 03:59 11:59 Intake Total 780 / 940 160 / 940 Output Total 275 / 325 0 / 325 50 / 325 Balance 505 / 615 160 / 615 -50 / 615 Intake: Intake, Oral Amount 780 / 900 120 / 900 Intake, Other Amount 40 / 40 Output: Output, Urine Amount 275 / 325 0 / 325 50 / 325 Other: Intake, Other Source Saline Solution Number of Unmeasured Voids 0 2 0 Weight 196 lb 3.2 oz Patient Weight 01/02/23 11:59 Weight 196 lb 3.2 oz Laboratory Results - last 24 hr 01/01/23 11:11: POC Glucose 124 H 01/01/23 17:05: POC Glucose 131 H 01/01/23 21:40: POC Glucose 162 H 01/02/23 06:25: POC Glucose 123 H I & O for Labs for Last 24 Hours: Intake & Output 07/12/31/22 01/01/23 01/02/23 11:59 11:59 11:59 11:59 Intake Total 600 / 600 720 / 720 1240 / 1240 940 / 940 Output Total 550 / 550 475 / 475 700 / 700 325 / 325 Balance 50 / 50 245 / 245 540 / 540 615 / 615 Weight 197 lb 8 oz 202 lb 9.6 oz 208 lb 12.8 oz 196 lb 3.2 oz Microbiology Reports for the Last 24 Hours: Microbiology 12/29/22 16:52 Peritoneal Fluid Gram Stain - Final 12/29/22 16:52 Peritoneal Fluid Body Fluid Culture - Preliminary NO GROWTH AFTER 72 HOURS 12/29/22 19:38 Urine,Clean Catch Urine Culture - Final Citrobacter farmeri Comment:: Patient is chronically ill-appearing. No jaundice. Abdomen is swollen with ascites. Minimally tender. Lungs have poor air movement with rhonchi in the bases. Heart rate regular but tachycardic. Legs are swollen, skin breakdown as previously noted. Assessment and Plan *Assessment and plan (1) SBP (spontaneous bacterial peritonitis): Status: Acute Category: Medical Code(s): K65.2 - Spontaneous bacterial peritonitis (2) Decompensation of cirrhosis of liver: Status: Acute Category: Medical Code(s): K72.90 - Hepatic failure, unspecified without coma; K74.60 - Unspecified cirrhosis of liver (3) Tachycardia: Status: Acute Category: Medical Code(s): R00.0 - Tachycardia, unspecified (4) Edema of both lower legs: Status: Acute Category: Medical Code(s): R60.0 - Localized edema (5) Liver mass: Status: Acute Category: Medical Code(s): R16.0 - Hepatomegaly, not elsewhere classified Plan Await cultures of ascites. Continue supportive care, supportive care medications antibiotics. I discussed with patient the possibility of changing focus to a palliative care approach and she is in agreement with this and actually wishes to adopt a DNR status. We will change this paperwork. We will initiate hospice care consultation when patient is transferred back to group home. This may be tomorrow depending on her comfort level. Plan update for 12/31/2022-hospice has accepted patient. Patient is willing. However she is very interes
[2023-01-02 08:00] VITALS: BP 111/75; PULSE 124; RESP 16; TEMP 36.6; O2SAT 92
[2023-01-02 11:29] LABS: POC Glucose,Bedside 116 (70-110)
[2023-01-02 15:51] VITALS: BP 103/59; PULSE 124; RESP 22; TEMP 36.8; O2SAT 92
[2023-01-02 16:54] LABS: POC Glucose,Bedside 127 (70-110)
--- NOTE | 2023-01-02 17:19 | PC.NURSE ---
Patient complains of nausea frequently during shift. PRN pain medication given with relief noted. VS stable and patient remained on room air. Patient very anxious about discharge plans. Hospice to see patient to discuss possible options. Abdomen distended, round, painful. Bilateral legs weeping, swollen. Rash on right side weeping.
[2023-01-02 20:00] VITALS: BP 107/58; PULSE 125; RESP 18; TEMP 36.7; O2SAT 92
[2023-01-02 21:11] LABS: POC Glucose,Bedside 141 (70-110)
[2023-01-03 04:00] VITALS: BP 108/49; PULSE 117; RESP 18; TEMP 36.6; O2SAT 93; BMI 35.6
--- NOTE | 2023-01-03 04:59 | PC.NURSE ---
CONTINUES TO HAVE WEEPING FROM LEGS AND ABDOMEN. CHUX WRAPPED AROUND LEGS AND UNDER THE PATIENT CHANGED FREQUENTLY. NO C/O PAIN. REMAINS TACHYCARDIC 120s. BANDAID TO RIGHT ABDOMEN PARANCENTESIS SITE C/D/I.
[2023-01-03 05:33] LABS: POC Glucose,Bedside 124 (70-110)
[2023-01-03 07:41] VITALS: BP 93/51; PULSE 116; RESP 18; TEMP 36.4; O2SAT 93
--- NOTE | 2023-01-03 07:41 | US_ITS ---
FINAL REPORT CLINICAL HISTORY: ABD SWELLING FINDINGS: ULTRASOUND-GUIDED PARACENTESIS HISTORY: Ascites ATTENDING PHYSICIAN: Dr. Orr PHYSICIAN BLOCKER METAL BASE: Jg Earl PA-C FINDINGS: After informed consent was obtained and timeout procedure performed, fluid was localized in the right lower quadrant under ultrasound guidance and marked on the skin appropriately. The patient was then prepped and draped in the usual sterile fashion and the skin was anesthetized with 1% lidocaine. An ultrasound guided paracentesis was then performed using a Turkel needle. Approximately 4.3 liters of clear yellow fluid was removed. No fluid was sent to lab. The patient tolerated the procedure well and there were no immediate complications. IMPRESSION: Ultrasound guided right lower quadrant paracentesis as discussed above. 4.3 liters of clear yellow fluid was removed. Reviewed, Interpreted and Dictated by Ramon Orr III, MD Transcribed by WILLY Carrera Authenticated and [facility]
[2023-01-03 10:10] LABS: POC Glucose,Bedside 144 (70-110)
--- NOTE | 2023-01-03 13:43 | PC.NURSE ---
pt. has weeping from both legs and abby sites, arms are bruised, generalized edema, left foot abrasion.
[2023-01-03 15:46] VITALS: BP 112/45; PULSE 119; PULSE 18; RESP 18; TEMP 36.5; O2SAT 93
[2023-01-03 16:40] LABS: POC Glucose,Bedside 99 (70-110)
--- NOTE | 2023-01-03 17:11 | EXP.ACUTE.PN ---
Subjective *Date: 01/03/23 *Time: 17:11 Interval history: Patient felt better after her paracentesis this morning, continues to be extremely ventilatory about her wishes for disposition. Medical Exam Vital signs and Labs for Last 24 Hours: Vital Signs Temp Pulse Pulse Resp BP Pulse Ox O2 Del Method 01/03/23 16:45 Room Air 01/03/23 13:41 Room Air 01/03/23 15:46 97.7 F 119 H 18 L 18 112/45 L 93 L Room Air 01/03/23 12:00 Room Air 01/03/23 09:39 Room Air 01/03/23 08:58 Room Air 01/03/23 07:41 97.6 F 116 H 18 93/51 L 93 L Room Air 01/03/23 06:31 Room Air 01/03/23 04:47 Room Air 01/03/23 04:00 97.8 F 117 H 18 108/49 L 93 L Room Air 01/03/23 03:00 Room Air 01/03/23 00:59 Room Air 01/02/23 23:00 Room Air 01/02/23 21:00 Room Air 01/02/23 20:00 125 H 92 L Room Air 01/02/23 20:00 98.1 F 125 H 18 107/58 L 92 L Room Air 01/02/23 18:38 Room Air Intake and Output 01/03/23 01/03/23 01/03/23 03:59 11:59 19:59 Intake Total 240 / 1560 600 / 1560 240 / 240 Output Total 200 / 200 0 / 0 Balance 240 / 1360 400 / 1360 240 / 240 Intake: Intake, Oral Amount 240 / 1560 600 / 1560 240 / 240 Output: Output, Urine Amount 200 / 200 0 / 0 Other: Number of Unmeasured Voids 1 0 Weight 194 lb Laboratory Results - last 24 hr 01/02/23 20:20: POC Glucose 141 H 01/03/23 05:25: POC Glucose 124 H 01/03/23 10:02: POC Glucose 144 H 01/03/23 16:32: POC Glucose 99 I & O for Labs for Last 24 Hours: Intake & Output 01/01/23 01/02/23 01/03/23 01/04/23 11:59 11:59 11:59 11:59 Intake Total 1240 / 1240 1420 / 1420 1560 / 1560 240 / 240 Output Total 700 / 700 325 / 325 200 / 200 0 / 0 Balance 540 / 540 1095 / 1095 1360 / 1360 240 / 240 Weight 208 lb 12.8 oz 196 lb 3.2 oz 194 lb Microbiology Reports for the Last 24 Hours: Microbiology 12/29/22 16:52 Peritoneal Fluid Gram Stain - Final 12/29/22 16:52 Peritoneal Fluid Body Fluid Culture - Final NO GROWTH AFTER 5 DAYS 12/29/22 16:27 Blood Blood Culture - Final NO GROWTH AFTER 5 DAYS 12/29/22 16:35 Blood Blood Culture - Final NO GROWTH AFTER 5 DAYS Comment:: Patient is chronically ill-appearing. No jaundice. Abdomen is swollen with ascites. Minimally tender. Lungs have poor air movement with rhonchi in the bases. Heart rate regular but tachycardic. Legs are swollen, skin breakdown as previously noted. Assessment and Plan *Assessment and plan (1) SBP (spontaneous bacterial peritonitis): Status: Acute Category: Medical Code(s): K65.2 - Spontaneous bacterial peritonitis (2) Decompensation of cirrhosis of liver: Status: Acute Category: Medical Code(s): K72.90 - Hepatic failure, unspecified without coma; K74.60 - Unspecified cirrhosis of liver (3) Tachycardia: Status: Acute Category: Medical Code(s): R00.0 - Tachycardia, unspecified (4) Edema of both lower legs: Status: Acute Category: Medical Code(s): R60.0 - Localized edema (5) Liver mass: Status: Acute Category: Medical Code(s): R16.0 - Hepatomegaly, not elsewhere classified Plan Await cultures of ascites. Continue supportive care, supportive care medications antibiotics. I discussed with patient the possibility of changing focus to a palliative care approach and she is in agreement with this and actually wishes to adopt a DNR status. We will change this paperwork. We will initiate hospice care consultation when patient is transferred back to f[facility]. This may be tomorrow depending on her comfort level. Plan update for 12/31/2022-hospice has accepted patient. Patient is willing. However she is very interested in pursuing another fci such as [facility] or [facility]. We will dis
[2023-01-03 20:00] VITALS: BP 102/64; PULSE 87; RESP 16; TEMP 36.9; O2SAT 96
--- NOTE | 2023-01-03 21:00 | PC.NURSE ---
pt c/o pain 01/09, tx per mar
[2023-01-03 22:02] LABS: POC Glucose,Bedside 94 (70-110)
[2023-01-04 04:00] VITALS: BP 105/49; PULSE 96; RESP 16; TEMP 36.5; O2SAT 92; BMI 32.1
[2023-01-04 05:22] LABS: POC Glucose,Bedside 95 (70-110)
--- NOTE | 2023-01-04 05:38 | PC.NURSE ---
pt has generalized 3+ pitting edema. rhonci in bilateral lung bases. RA. A&OX4. skin issues noted in bio. jaundice/yellowing noted around the neck/chin/lower cheeks. q2turn, excoriated abby area - barrier cream applied qchange, pure wick removed, voiding per brief/bedpan, scattered bruising on bilateral arms. one c/o of pain t/o night. abd tender, distended. edematous areas weeping fluid/chucks under pt. 2 bandaids to abd r/t paracentesis puncture. crushed pills r/t pt being unable swallow them/gagging. 22g left hand SL. cb within reach, bed locked and in lowest position.
--- NOTE | 2023-01-04 05:57 | PC.NURSE ---
had a bath tonight
[2023-01-04 07:31] VITALS: BP 99/46; PULSE 115; RESP 20; TEMP 36.8; O2SAT 93
--- NOTE | 2023-01-04 08:44 | EXP.ACUTE.PN ---
Subjective *Date: 01/04/23 *Time: 08:44 Interval history: Patient is alert, oriented x3. Pain is unchanged from its improved status yesterday after paracentesis. Medical Exam Vital signs and Labs for Last 24 Hours: Vital Signs Temp Pulse Pulse Resp BP Pulse Ox O2 Del Method 01/04/23 07:31 98.2 F 115 H 20 99/46 L 93 L Room Air 01/04/23 04:00 97.7 F 96 H 16 105/49 L 92 L Room Air 01/04/23 06:03 Room Air 01/04/23 05:00 Room Air 01/04/23 03:00 Room Air 01/04/23 00:43 Room Air 01/03/23 22:54 Room Air 01/03/23 21:00 Room Air 01/03/23 20:00 98.5 F 87 16 102/64 L 96 Nasal Cannula 01/03/23 20:00 Room Air 01/03/23 17:51 Room Air 01/03/23 16:45 Room Air 01/03/23 13:41 Room Air 01/03/23 15:46 97.7 F 119 H 18 L 18 112/45 L 93 L Room Air 01/03/23 12:00 Room Air 01/03/23 09:39 Room Air 01/03/23 08:58 Room Air Intake and Output 01/03/23 01/04/23 01/04/23 19:59 03:59 11:59 Intake Total 480 / 900 420 / 900 Output Total 0 / 0 Balance 480 / 900 420 / 900 Intake: Intake, Oral Amount 480 / 900 420 / 900 Output: Output, Urine Amount 0 / 0 Other: Number of Unmeasured Voids 0 1 1 Number of Bowel Movements 1 Weight 174 lb 4 oz Patient Weight 01/04/23 11:59 Weight 174 lb 4 oz Laboratory Results - last 24 hr 01/03/23 10:02: POC Glucose 144 H 01/03/23 16:32: POC Glucose 99 01/03/23 21:16: POC Glucose 94 01/04/23 05:11: POC Glucose 95 I & O for Labs for Last 24 Hours: Intake & Output 01/01/23 01/02/23 01/03/23 01/04/23 11:59 11:59 11:59 11:59 Intake Total 1240 / 1240 1420 / 1420 1560 / 1560 900 / 900 Output Total 700 / 700 325 / 325 200 / 200 0 / 0 Balance 540 / 540 1095 / 1095 1360 / 1360 900 / 900 Weight 208 lb 12.8 oz 196 lb 3.2 oz 194 lb 174 lb 4 oz Microbiology Reports for the Last 24 Hours: Microbiology 12/29/22 16:52 Peritoneal Fluid Gram Stain - Final 12/29/22 16:52 Peritoneal Fluid Body Fluid Culture - Final NO GROWTH AFTER 5 DAYS 12/29/22 16:27 Blood Blood Culture - Final NO GROWTH AFTER 5 DAYS 12/29/22 16:35 Blood Blood Culture - Final NO GROWTH AFTER 5 DAYS Comment:: Patient is chronically ill-appearing. No jaundice. Abdomen is swollen with ascites. Minimally tender. Lungs have poor air movement with rhonchi in the bases. Heart rate regular but tachycardic. Legs are swollen, skin breakdown as previously noted. Assessment and Plan *Assessment and plan (1) SBP (spontaneous bacterial peritonitis): Status: Acute Category: Medical Code(s): K65.2 - Spontaneous bacterial peritonitis (2) Decompensation of cirrhosis of liver: Status: Acute Category: Medical Code(s): K72.90 - Hepatic failure, unspecified without coma; K74.60 - Unspecified cirrhosis of liver (3) Tachycardia: Status: Acute Category: Medical Code(s): R00.0 - Tachycardia, unspecified (4) Edema of both lower legs: Status: Acute Category: Medical Code(s): R60.0 - Localized edema (5) Liver mass: Status: Acute Category: Medical Code(s): R16.0 - Hepatomegaly, not elsewhere classified Plan I had a long discussion with the patient about her options. She still continues to believe she can go to a friend's home in [place]. I told her quite frankly I did not think this was an option and that would be ethically wrong with me to send her to a place where I did not believe she would be successful and would need to almost immediately be transferred to another hospital. She understands this and is still fixated on the issue with the hospice care center about not getting her paracentesis. I told her that hospice care center was no longer an option and that we would make sure she was in a place where she c
--- NOTE | 2023-01-04 09:32 | EXP.PHA.PN ---
Subjective *Date: 01/04/23 *Time: 09:32 Medical Exam Vital signs and Labs for Last 24 Hours: Vital Signs Temp Pulse Pulse Resp BP Pulse Ox O2 Del Method 01/04/23 07:31 98.2 F 115 H 20 99/46 L 93 L Room Air 01/04/23 04:00 97.7 F 96 H 16 105/49 L 92 L Room Air 01/04/23 06:03 Room Air 01/04/23 05:00 Room Air 01/04/23 03:00 Room Air 01/04/23 00:43 Room Air 01/03/23 22:54 Room Air 01/03/23 21:00 Room Air 01/03/23 20:00 98.5 F 87 16 102/64 L 96 Nasal Cannula 01/03/23 20:00 Room Air 01/03/23 17:51 Room Air 01/03/23 16:45 Room Air 01/03/23 13:41 Room Air 01/03/23 15:46 97.7 F 119 H 18 L 18 112/45 L 93 L Room Air 01/03/23 12:00 Room Air 01/03/23 09:39 Room Air Intake and Output 01/03/23 01/04/23 01/04/23 23:59 07:59 15:59 Intake Total 660 / 1740 240 / 240 Output Total 0 / 200 Balance 660 / 1540 240 / 240 Intake: Intake, Oral Amount 660 / 1740 240 / 240 Output: Output, Urine Amount 0 / 200 Other: Number of Unmeasured Voids 1 1 Number of Bowel Movements 1 Weight 79.038 kg Patient Weight 01/04/23 23:59 Weight 79.038 kg Laboratory Results - last 24 hr 01/03/23 10:02: POC Glucose 144 H 01/03/23 16:32: POC Glucose 99 01/03/23 21:16: POC Glucose 94 01/04/23 05:11: POC Glucose 95 I & O for Labs for Last 24 Hours: Intake & Output 01/01/23 01/02/23 01/03/23 01/04/23 23:59 23:59 23:59 23:59 Intake Total 1320 / 1480 1360 / 1600 1740 / 1740 240 / 240 Output Total 825 / 825 50 / 50 200 / 200 Balance 495 / 655 1310 / 1550 1540 / 1540 240 / 240 Weight 94.71 kg 88.995 kg 87.997 kg 79.038 kg Microbiology Reports for the Last 24 Hours: Microbiology 12/29/22 16:52 Peritoneal Fluid Gram Stain - Final 12/29/22 16:52 Peritoneal Fluid Body Fluid Culture - Final NO GROWTH AFTER 5 DAYS 12/29/22 16:27 Blood Blood Culture - Final NO GROWTH AFTER 5 DAYS 12/29/22 16:35 Blood Blood Culture - Final NO GROWTH AFTER 5 DAYS The patient's infection will respond to the chosen ABx?: Yes (AFEBRILE, URINE CX = C. FARMERI SUSCEPTIBLE.) Is the patient receiving the right drug, dose, and route?: Yes Could a more targeted ABx be ordered?: No
--- NOTE | 2023-01-04 12:01 | PC.NURSE ---
courtesy tech note: pt is up to chair. ice given upon request. call light is within reach
[2023-01-04 12:37] LABS: POC Glucose,Bedside 149 (70-110)
[2023-01-04 16:00] VITALS: BP 105/54; PULSE 108; RESP 18; TEMP 37.1; O2SAT 95
[2023-01-04 16:35] LABS: POC Glucose,Bedside 142 (70-110)
--- NOTE | 2023-01-04 18:57 | PC.NURSE ---
Patient had no complaints of pain today. Patient got up to chair x2 today with assist. Patient has been tearful and expresses wishes to be discharged to friend's house.
[2023-01-04 20:00] VITALS: BP 86/47; PULSE 115; RESP 16; TEMP 36.6; O2SAT 96
[2023-01-04 22:26] LABS: POC Glucose,Bedside 224 (70-110)
[2023-01-05 04:00] VITALS: BP 95/42; PULSE 100; RESP 16; TEMP 36.7; O2SAT 92; BMI 34.2
[2023-01-05 05:25] LABS: POC Glucose,Bedside 108 (70-110)
[2023-01-05 08:00] VITALS: BP 78/40; PULSE 57; RESP 16; TEMP 36.7; O2SAT 92
--- NOTE | 2023-01-05 08:54 | EXP.ACUTE.PN ---
Subjective *Date: 01/05/23 *Time: 08:54 Interval history: Patient is awake, alert this morning. She reports that she was able to transition to a chair yesterday, nursing staff reports that it was two-person moderate assist. She is also quite a bit of diarrhea which has required a lot of nursing care. Medical Exam Vital signs and Labs for Last 24 Hours: Vital Signs Temp Pulse Resp BP Pulse Ox O2 Del Method 01/05/23 08:00 98.0 F 57 L 16 78/40 L 92 L Room Air 01/05/23 06:40 Room Air 01/05/23 04:00 98.1 F 100 H 16 95/42 L 92 L Room Air 01/05/23 04:59 Room Air 01/05/23 03:00 Room Air 01/05/23 01:00 Room Air 01/04/23 23:00 Room Air 01/04/23 21:00 Room Air 01/04/23 20:00 96 Room Air 01/04/23 20:00 97.8 F 115 H 16 86/47 L 96 Room Air 01/04/23 16:00 98.7 F 108 H 18 105/54 L 95 Room Air Intake and Output 01/04/23 01/05/23 01/05/23 19:59 03:59 11:59 Intake Total 400 / 1114 444 / 1114 270 / 1114 Output Total 0 / 0 Balance 400 / 1114 444 / 1114 270 / 1114 Intake: Intake, Oral Amount 400 / 1114 444 / 1114 270 / 1114 Output: Output, Urine Amount 0 / 0 Other: Number of Unmeasured Voids 1 1 1 Number of Bowel Movements 1 Weight 186 lb 3.2 oz Patient Weight 01/05/23 11:59 Weight 186 lb 3.2 oz Laboratory Results - last 24 hr 01/04/23 10:56: POC Glucose 149 H 01/04/23 16:28: POC Glucose 142 H 01/04/23 22:19: POC Glucose 224 H 01/05/23 05:18: POC Glucose 108 I & O for Labs for Last 24 Hours: Intake & Output 01/02/23 01/03/23 01/04/23 01/05/23 11:59 11:59 11:59 11:59 Intake Total 1420 / 1420 1560 / 1560 1140 / 1140 1114 / 1114 Output Total 325 / 325 200 / 200 0 / 0 0 / 0 Balance 1095 / 1095 1360 / 1360 1140 / 1140 1114 / 1114 Weight 196 lb 3.2 oz 194 lb 174 lb 4 oz 186 lb 3.2 oz Comment:: Patient is chronically ill-appearing. No jaundice. Abdomen is swollen with ascites. Minimally tender. Lungs have poor air movement with rhonchi in the bases. Heart rate regular but tachycardic. Legs are swollen, skin breakdown as previously noted. Assessment and Plan *Assessment and plan (1) SBP (spontaneous bacterial peritonitis): Status: Acute Category: Medical Code(s): K65.2 - Spontaneous bacterial peritonitis (2) Decompensation of cirrhosis of liver: Status: Acute Category: Medical Code(s): K72.90 - Hepatic failure, unspecified without coma; K74.60 - Unspecified cirrhosis of liver (3) Tachycardia: Status: Acute Category: Medical Code(s): R00.0 - Tachycardia, unspecified (4) Edema of both lower legs: Status: Acute Category: Medical Code(s): R60.0 - Localized edema (5) Liver mass: Status: Acute Category: Medical Code(s): R16.0 - Hepatomegaly, not elsewhere classified Plan I had a long discussion with the patient about her options. She still continues to believe she can go to a friend's home in [place]. I told her quite frankly I did not think this was an option and that would be ethically wrong with me to send her to a place where I did not believe she would be successful and would need to almost immediately be transferred to another hospital. She understands this and is still fixated on the issue with the hospice care center about not getting her paracentesis. I told her that hospice care center was no longer an option and that we would make sure she was in a place where she could receive her paracentesis in a palliative way. Her goal today is to see if she can get up and transfer to the bedside commode. If she is able to transfer to the bedside commode with minimal assistance I will consider discharge to her friend's home in [place] although I am extremely doubtful this would happen and I told her this. She is still dealing with the fact that over the last 5 months she is become essentially a terminal cancer patient and
[2023-01-05 11:59] LABS: POC Glucose,Bedside 278 (70-110)
[2023-01-05 12:00] VITALS: BP 85/43; PULSE 110; RESP 18; TEMP 36.6; O2SAT 95
[2023-01-05 16:00] VITALS: BP 78/41; PULSE 110; RESP 20; TEMP 36.5; O2SAT 95
[2023-01-05 17:19] LABS: POC Glucose,Bedside 155 (70-110)
--- NOTE | 2023-01-05 17:39 | PC.NURSE ---
Patient has had hypotension throughout shift. No symptoms noted, patient alert and oriented.
[2023-01-05 20:00] VITALS: BP 112/44; PULSE 108; RESP 18; TEMP 36.7; O2SAT 94
[2023-01-05 20:58] LABS: POC Glucose,Bedside 182 (70-110)
[2023-01-06 04:00] VITALS: BP 115/50; PULSE 66; RESP 16; TEMP 36.6; O2SAT 96; BMI 34.2
--- NOTE | 2023-01-06 05:24 | PC.NURSE ---
dsg to cocyx changed --optifoam
[2023-01-06 05:29] LABS: POC Glucose,Bedside 106 (70-110)
[2023-01-06 08:00] VITALS: BP 145/65; PULSE 61; RESP 18; TEMP 36.6; O2SAT 93
--- NOTE | 2023-01-06 08:40 | PC.NURSE ---
COURTESY TECH NOTE; ROUNDED ON PT 0740, PT DENIED NEED FOR DRINK, ASSISTANCE WITH RESTROOM. ASSISTED PRIMARY NURSE AND TECH TO AMBULATE PT FROM BED TO CHAIR. ACTIVITY TOLERATED FAIR. CALL LIGHT WITHIN REACH, NO FURTHER REQUESTS AT THIS TIME Lorraine MANZO, PRAFUL
[2023-01-06 11:15] LABS: POC Glucose,Bedside 114 (70-110)
--- NOTE | 2023-01-06 12:47 | EXP.DC.SUM ---
General Admission date:: 12/29/22 Discharge date: 01/06/23 HPI HPI HPI: Very unfortunate 72-year-old female with history of liver mass, decompensated liver cirrhosis and history of spontaneous bacterial peritonitis with end-stage liver disease. She has been seen at [facility] multiple times, biopsies of her liver mass have not been done but the consideration has been that she has primary hepatocellular carcinoma. She been transferred to several times for diuresis, treatment of decompensated cirrhosis and has been living at the [facility] because of her pedal edema, overall functional decline status and need for nursing care. Over the past weeks we have discussed with her several times end-of-life issues, she is up to this point declined hospice care and has decided to maintain a full CODE STATUS. However, she became ill yesterday and requested that she not be transferred to because she was very tired of long-term stays and work-ups and hospitals. As result after evaluating in the ER and drawing off some chylous ascitic fluid she was admitted here for further discussions of management going forward. Hospital Course Hospital Course Hospital Course: Patient was admitted. Had diagnostic paracentesis in the ER. This revealed chylous fluid, sent for culture. No growth on culture after 1 week of antibiotics and antibiotics were discontinued. She had improving edema with wound care and nursing care in the hospital. Extensive discussions were held with patient about further work-up. She decided that in regards to her significant liver decompensation and terminal status she elected to change her CODE STATUS to DNR status. We discussed possibly going into hospice care. She considered this, and was actually excepted to the hospice care center in [place] but she found out that she could not get therapeutic paracentesis there and refused to go because these paracentesis have been a great source of pain relief for her. We discussed going back to a skilled care facility however she did not wish to invest any monies which were required by the facilities that we found. She did agree with ongoing hospice care at home, and after many consultations with a friend of hers she will be going to her friend's home in [place]. Our social work service is on a fantastic job of coordinating DME issues with [facility] and with try to give her a safe home environment where she can go to. To be yajaira, I am extremely skeptical that she will be able to live in a home environment given her significant weakness, multiple bouts of diarrhea and overall need for 24/7 nursing and therapy care. However, this is her decision and she is adamant that she will be okay at this home and I certainly hope that she will be. We will send her fentanyl patch to the pharmacy for hospice to fill, and she will be followed by the hospice MD affiliated with his group. Overall prognosis is poor, her condition is terminal based on end-stage cirrhosis and the recurrence of what appears to be her hepatocellular carcinoma on CT imaging here. She is a very qualified candidate for hospice and palliative care. Exam Data for Last 24 hours Vital signs and Labs for Last 24 Hours: Temp Pulse Resp BP Pulse Ox O2 Del Method 97.9 F 61 18 145/65 H 93 L Room Air 01/06/23 08:00 01/06/23 08:00 01/06/23 08:00 01/06/23 08:00 01/06/23 08:00 01/06/23 10:53 Laboratory Results - last 24 hr 01/05/23 16:59: POC Glucose 155 H 01/05/23 20:41: POC Glucose 182 H 01/06/23 05:21: POC Glucose 106 01/06/23 11:08: POC Glucose 114 H I & O for Last 24 hours: Intake & Output 01/04/23 01/05/23 01/06/23 01/07/23 11:59 11:59 11:59 11:59 Intake Total 1140 / 1140 1114 / 1114 890 / 890 Output Total 0 / 0 0 / 0 0 / 0 Balance 1140 / 1140 1114 / 1114 890 / 890 Weight 174 lb 4 oz 186 lb 3.2 oz 186 lb 3.203 oz [employer]
--- NOTE | 2023-01-06 13:24 | PC.NURSE ---
Called and spoke with Maria Luisa, pt's daughter regarding pt being discharged. Maria Luisa stated that pt's friend Angela would be coming to get her. Angela called per this nurse and Angela states that she will be here to get patient shortly.
--- NOTE | 2023-01-06 13:28 | HMH.PHAINT1 ---
Pharmacy Intervention Comments: Discharge medications were discussed with patient. -Acyclovir (N/D/V) -fentanyl Patch, replacing oxycodone. (N/V) -Discussed D/C meds [place], PharmD student
--- NOTE | 2023-01-06 15:35 | PC.NURSE ---
Xifaxan and Acyclovir called into [facility] pharmacy in [place]. Angela, pt's friend, who patient is going home with given script for Fentanyl patch. D/c instructions given to Angela.
== END 2023-01-06 15:37 | disposition hospice, home (50) | DRG 372 ==
LOC: ER 17:36 → 2ND 18:32
PROVIDERS: Admitting Provider Internal Medicine Adolescent Medicine; Emergency Provider Student in an Organized Health Care Education/Training Program; Visit Provider Internal Medicine Adolescent Medicine
DX: K65.2 Spontaneous bacterial peritonitis (principal); C22.0 Liver cell carcinoma; K72.90 Hepatic failure, unspecified without coma; K74.60 Unspecified cirrhosis of liver; R60.0 Localized edema; R16.0 Hepatomegaly, not elsewhere classified; Z66 Do not resuscitate; E11.9 Type 2 diabetes mellitus without complications; Z51.5 Encounter for palliative care; K21.9 Gastro-esophageal reflux disease without esophagitis; I10 Essential (primary) hypertension; M19.90 Unspecified osteoarthritis, unspecified site
CPT/HCPCS: 49082 ×2; 36415; 49083; 71045; 74177; 80053; 80061; 81001; 82962; 83036; 83605; 83690; 83735; 85025; 85610; 85730; 87040; 87070; 87086; 87088; 87186; 87205; 89051; 97163; 97166; 97530; 99285; J0696; J2405; Q9967